=== PATIENT | female | born 1975 | race Caucasian/White ===

== ENCOUNTER 2022-11-01 19:30 | Emergency (ER) | payer OTHER ==
[~2022-11-01] VITALS: Ht 170.2 cm; Wt 79.4 kg
[2022-11-01 20:00] VITALS: BP 170/83
--- NOTE | 2022-11-01 20:43 | NUR ---
PT TAKEN TO BED 5
--- NOTE | 2022-11-01 20:51 | NUR ---
47YR OLD FEMALE BIB SELF. C/O FINGER PAIN. R THUMB SWOLLEN AND RED X4 DAYS. PT UNKNOWN OF INJURY. POSS PICKING UP A BOX. DENIES DRAINAGE FROM THUMB. PAIN LEVEL 9/10 . PT IN BED WITH HOB ELEVATED BED AT LOWEST POSITION NKDA HTN
--- NOTE | 2022-11-01 22:18 | NUR ---
Dr. Henley examining patient.
--- NOTE | 2022-11-01 22:25 | NUR ---
I&D SET UP FOR DR ANSARI
[2022-11-01] MEDS ORDERED: LIDOCAINE 1% 500 MG/ 50 ML VIAL INJ ONE ×2 (22:40→23:40)
[2022-11-01] MEDS ORDERED: LIDOCAINE MPF 1% 5 ML ONE ×2 (22:42→23:18)
[2022-11-01] MEDS ORDERED: KETOROLAC 30 MG/ML VIAL IM ONE (23:00)
--- NOTE | 2022-11-01 23:03 | NUR ---
Note artemio in EDM - 11/02/22 at 0102 by VAL Patient discharged with v/s stable. Written and verbal after care instructions given and explained to parent/guardian. Parent/Guardian verbalized understanding. Ambulatoryby parent. All questions addressed prior to discharge. Advised to follow up with PMD.
[2022-11-01] MEDS ORDERED: SULF-59 PO (23:37)
[2022-11-01] MEDS ORDERED: IBUP-2218 PO (23:37)
[2022-11-01] MEDS ORDERED: SULFAMETH/TRIMETH DS 800/160MG 1 TAB PO ONE (23:40)
--- NOTE | 2022-11-02 00:08 | NUR ---
Patient discharged with v/s stable. Written and verbal after care instructions given and explained. Patient alert, oriented and verbalized understanding of instructions. Ambulatory with steady gait. All questions addressed prior to discharge. ID band removed. Patient advised to follow up with PMD. Rx of IBUPROFEN BACTRIM given.
== END 2022-11-02 00:08 | disposition home or self-care (01) ==
LOC: MED 19:30
DX: L03.011 Cellulitis of right finger (principal); I10 Essential (primary) hypertension; Z79.899 Other long term (current) drug therapy
CPT/HCPCS: 26010; 96372; 99284; J1885; J2001; 99283

== ENCOUNTER 2023-02-11 22:23 | Emergency (ER) | payer OTHER ==
[~2023-02-11] VITALS: Ht 170.2 cm; Wt 84.8 kg
[~2023-02-11 22:23] MED LIST: IBUP-2218 PO; SULF-59 PO
[2023-02-11 23:00] VITALS: BP 176/96
[2023-02-12 00:16] LABS: BASOPHILS # (AUTO) 0.1 K/uL (0.00-0.22); BASOPHILS % (AUTO) 1.2 % (0.0-2.0); EOSINOPHILS # (AUTO) 0.2 K/uL (0-0.4); EOSINOPHILS % (AUTO) 1.7 % (0.0-4.0); HEMATOCRIT 36.1 % (36-48); HEMOGLOBIN 12.3 g/dL (12.0-16.0); LYMPHOCYTES # (AUTO) 3.2 K/uL (2.5-16.5); LYMPHOCYTES % (AUTO) 30.9 % (20.5-51.1); MEAN CORPUSCULAR HEMOGLOBIN 30 pg (27-31); MEAN CORPUSCULAR HGB CONC 34 g/dL (33-37); MEAN CORPUSCULAR VOLUME 87.6 fL (80-94); MONOCYTES # (AUTO) 0.6 K/uL (0.8-1.0); MONOCYTES % (AUTO) 5.5 % (1.7-9.3); NEUTROPHILS # (AUTO) 6.4 K/uL (1.8-7.7); NEUTROPHILS % (AUTO) 60.7 % (42.2-75.2); PLATELET COUNT (AUTO) 319 K/uL (140-450); RED BLOOD CELL COUNT(AUTO) 4.12 MIL/uL (4.20-5.40); RED CELL DISTRIBUTION WIDTH 12.7 % (11.6-13.7); WHITE BLOOD COUNT (AUTO) 10.5 K/uL (4.8-10.8)
[2023-02-12 00:28] LABS: APPEARANCE,URINE CLEAR (CLEAR); BILIRUBIN,URINE NEGATIVE (NEGATIVE); BLOOD, URINE TRACE-L (NEGATIVE); COLOR,URINE YELLOW (YELLOW); LEUKOCYTE ESTERASE ,URINE NEGATIVE (NEGATIVE); NITRITE, URINE NEGATIVE (NEGATIVE); UGLUCOSE 3+ (NEGATIVE)
[2023-02-12 00:43] LABS: RBC,URINE 0-5 /HPF (0-5); YEAST,URINE Few /HPF (None Seen)
[2023-02-12 00:53] LABS: ALBUMIN 3.5 g/dL (3.4-5.0); ANION GAP 10.7 (8-16); ASPARTATE AMINOTRANSFERASE 19 U/L (15-37); CARBON DIOXIDE 28.5 mmol/L (21-32); CHLORIDE 94 mmol/L (98-107); CREATININE 1.1 mg/dL (0.6-1.3); GFR ARICAN-AMERICAN 68 mL/min (>90); LIPASE 132 U/L (73-393); POTASSIUM 4.2 mmol/L (3.5-5.1); SODIUM SERUM 129 mmol/L (136-145); TOTAL BILIRUBIN 0.6 mg/dL (0.0-1.0); UREA NITROGEN, BLOOD 13 mg/dL (7-18)
[2023-02-12 00:54] LABS: GLUCOSE 606 mg/dL (74-106)
[2023-02-12] MEDS ORDERED: NACL 0.9% 1,000 ML IV ONE ×2 (01:50)
[2023-02-12] MEDS ORDERED: METF-346 PO (02:46)
--- NOTE | 2023-02-12 04:31 | NUR ---
Patient discharged with v/s stable. Written and verbal after care instructions given and explained. Patient alert, oriented and verbalized understanding of instructions. Ambulatory with steady gait. All questions addressed prior to discharge. ID band removed. Patient advised to follow up with PMD. Rx of METFORMIN given. Patient educated on indication of medication including possible reaction and side effects. Opportunity to ask questions provided and answered. DX: HYPERGLYCEMIA, DIABETES MELLITUS AND NUTRITION, ADULT
== END 2023-02-12 04:31 | disposition home or self-care (01) ==
LOC: MED 22:23
DX: E11.9 Type 2 diabetes mellitus without complications (principal); Z20.822 Contact with and (suspected) exposure to COVID-19; I10 Essential (primary) hypertension; Z79.4 Long term (current) use of insulin; Z79.899 Other long term (current) drug therapy
CPT/HCPCS: 36415; 80053; 81001; 82948; 83605; 83690; 84484; 85025; 87086; 87426; 93005; 96360; 96361; 99284; J7030

== ENCOUNTER 2023-08-27 16:37 | Emergency (ER) | payer OTHER ==
[~2023-08-27 16:37] MED LIST changes: +METF-346 PO
== END 2023-08-27 17:22 | disposition left against medical advice (07) ==
LOC: MED 16:37
DX: M54.9 Dorsalgia, unspecified (principal); Z53.21 Procedure and treatment not carried out due to patient leaving prior to being seen by health care provider